=== PATIENT | female | born 1995 | race Caucasian/White ===

== ENCOUNTER 2019-05-11 07:25 | Outpatient (CLI) | payer OTHER ==
--- NOTE | 2019-05-11 09:18 | ULT ---
EXAM: Limited OB ultrasound COMPARISON: None HISTORY: female patient. Evaluate for growth, amniotic fluid index, and umbilical artery Dopple r. TECHNIQUE: Multiplanar grayscale and color Doppler transabdominal sonographic images are obtained. FINDINGS: There is a single intrauterine gestation in cephalic presentation. Cardiac Doppler demonstr ates heart tones with a heart rate of 143 beats per minute. The placenta is located anteriorly without evidence of placenta previa. There is a hypoechoic area seen at the leading edge o f the placenta which measures 4.5 cm x 3.1 cm x 3.2 cm. Color flow evaluation does not demonstrate flow within this structure. This is thought to be within the leading edge of the placenta and may rep resent an area of prior hemorrhage. The amniotic fluid index is diminished with an amniotic fluid index of 6.55 centimeters. The cervix is obscured due to shadowing from the head. biometry measurements: BPD 7.77 cm -- 31 weeks 2 days HC 28.66 cm -- 31 weeks 4 days AC 27.11 cm -- 31 weeks 2 days FL 6.39 cm -- 33 weeks 1 day The estimated gestational age by ultrasound is 31 weeks 6 days with an MITZI on07/07/2019. Gestational a ge by the last menstrual period is 33 weeks 6 days. The estimated weight by ultrasound is 1837 g (4 pounds, 1 ounce). This represents 5 percentile for weight. The anatomical structures were not well evaluated on this examination, no definite anomal ies are seen. Umbilical artery Doppler: Cord insertion at the level of the fetus: Peak systolic velocity 34.1 cm/s, end-diastolic velocity 10 .7 cm/s, resistive index 0.688, pulsatility index 1.14. Mid umbilical cord: Peak systolic velocity 38.3 cm/s, end diastolic velocity 17 cm/s, resistive index 0.556, and pulsatility index 0.81. Umbilical cord insertion adjacent to placenta: Systolic velocity 47.9 cm/s, end-diastolic velocity 18 .6 cm/s, resistive index 0.611, pulsatility index 0.983. IMPRESSION: 1. Single intrauterine gestation in cephalic presentation with heart tones documented. Estimat ed gestational age by ultrasound is 31 weeks 6 days with MITZI on 07/07/2019. Gestational age by last menstrual period is 33 weeks and 6 days. 2. Estimated weight is 1008 and 37 g (4 pounds, 1 ounce).. 3. Amniotic fluid index is diminished measuring 6.55 centimeters. 4. Hypoechoic area within the leading edge of the placenta which does not demonstrate flow on color f low evaluation and may represent prior placental hemorrhage. 5. Above findings discussed with Dr. Reyes on 05/11/2019 at 0912 hours.
== END 2019-05-11 07:26 | disposition home or self-care (01) ==
LOC: BICULT 07:25
PROVIDERS: ATTEND Family Medicine
DX: O09.893 Supervision of other high risk pregnancies, third trimester (principal); Z3A.33 33 weeks gestation of pregnancy
CPT/HCPCS: 76700; 76815